=== PATIENT | male | born 1935 | race Caucasian/White ===

== ENCOUNTER 2016-11-28 17:30 | Inpatient (IN) | payer OTHER, MEDICAID ==
[~2016-11-28] VITALS: Ht 172.7 cm; Wt 64.0 kg
[2016-11-28 17:37] VITALS: BP_SYST 129
[2016-11-28] MEDS ORDERED: NACL 0.9% 1,000 ML IV ONE (18:15)
[2016-11-28] MEDS ORDERED: CARB-62 PO (18:44)
[2016-11-28] MEDS ORDERED: CLOP75TA2 PO (18:44)
[2016-11-28] MEDS ORDERED: GABA300S PO (18:44)
[2016-11-28] MEDS ORDERED: ASA81 PO (18:44)
[2016-11-28] MEDS ORDERED: ATOR10TA68 PO (18:44)
[2016-11-28] MEDS ORDERED: TAMS-11 PO (18:44)
[2016-11-28] MEDS ORDERED: DEXT1CAP3 PO (18:44)
[2016-11-28] MEDS ORDERED: DIGO125T79 PO (18:44)
[2016-11-28] MEDS ORDERED: SOLI5TAB6 PO (18:44)
[2016-11-28] MEDS ORDERED: STA120 PO (18:44)
[2016-11-28] MEDS ORDERED: FLOR.1 GT (18:44)
[2016-11-28] MEDS ORDERED: GLUXR500 PO (18:44)
[2016-11-28] MEDS ORDERED: DOCU100T10 PO (18:44)
[2016-11-28] MEDS ORDERED: AMAN100C16 PO (18:44)
[2016-11-28 18:46] LABS: BASOPHILS % (AUTO) 0.4 % (0.0-2.0); EOSINOPHILS # (AUTO) 0.2 K/uL (0.0-0.4); EOSINOPHILS % (AUTO) 3.6 % (0.0-4.0); LYMPHOCYTES # (AUTO) 1.5 K/uL (1.0-5.5); MEAN CORPUSCULAR HEMOGLOBIN 32 pg (27-31); MEAN CORPUSCULAR HGB CONC 34 % (32-36); MEAN CORPUSCULAR VOLUME 94 fL (79.0-98.0); MONOCYTES # (AUTO) 0.4 K/uL (0.0-1.0); MONOCYTES % (AUTO) 8.7 % (1.7-9.3); NEUTROPHILS # (AUTO) 2.5 K/uL (1.8-7.7); NEUTROPHILS % (AUTO) 54.3 % (40.0-70.0); PLATELET COUNT (AUTO) 105 K/uL (130-430); RED BLOOD CELL COUNT(AUTO) 3.41 MIL/uL (4.2-6.2); RED CELL DISTRIBUTION WIDTH 13.9 % (9.0-15.0); WHITE BLOOD COUNT (AUTO) 4.6 K/uL (4.8-10.8)
[2016-11-28 18:48] LABS: PROTHROMBIN TIME 10.4 SECS (9.5-12.5)
[2016-11-28 19:04] LABS: ALANINE AMINOTRANSFERASE 18 U/L (12-78); ANION GAP 9 (5-15); ASPARTATE AMINOTRANSFERASE 18 U/L (10-37); CALCIUM 9.1 mg/dL (8.4-11.0); CHLORIDE 103 mmol/L (98-107); GLUCOSE 135 mg/dL (70-99); POTASSIUM 5.1 mmol/L (3.5-5.1); SODIUM SERUM 139 mmol/L (136-145); TOTAL BILIRUBIN 0.4 mg/dL (0.0-1.0); UREA NITROGEN, BLOOD 33 mg/dL (8-21)
[2016-11-28 19:05] LABS: ACETAMINOPHEN < 1 ug/mL (1-30)
[2016-11-28 19:26] LABS: BILIRUBIN,URINE NEGATIVE (NEGATIVE); BLOOD, URINE NEGATIVE (NEGATIVE); CLARITY/URINE CLEAR (CLEAR); COLOR,URINE YELLOW (YELLOW); GLUCOSE,URINE NEGATIVE (NEGATIVE); KETONES,URINE NEGATIVE (NEGATIVE); LEUKOCYTE ESTERASE ,URINE NEGATIVE (NEGATIVE); NITRITE, URINE NEGATIVE (NEGATIVE); PH,URINE 5.5 (5.0-8.0); PROTEIN URINE NEGATIVE (NEGATIVE); UROBILINOGEN,URINE 0.2 (0.2-1.0)
[2016-11-28 19:40] LABS: THYROID STIMULATING HORMONE 1.88 uIu/mL (0.36-3.74)
[2016-11-28 19:45] LABS: BARBITURATE, URINE NEGATIVE (NEG <=200); BENZODIAZEPINE, URINE NEGATIVE (NEG <=150); CANNABINOID, URINE NEGATIVE (NEG <=50); COCAINE, URINE NEGATIVE (NEG <=150); METHAMPHETAMINES SCREEN,URINE NEGATIVE (NEG <=500); OPIATE, URINE NEGATIVE (NEG <=100); PHENCYCLIDINE SCREEN,URINE NEGATIVE (NEG <=25); UR TRICYCLIC ANTIDEPRESSANTS NEGATIVE (NEG <=300); URINE AMPHETAMINE NEGATIVE (NEG <=500); URINE METHADONE NEGATIVE (NEG <=200); URINE OXYCODONE SCREEN NEGATIVE (NEG <=100); URINE PROPOXYPHENE SCREEN NEGATIVE (NEG <=300)
[2016-11-28 19:50] VITALS: BP_SYST 166
[2016-11-28] MEDS ORDERED: D5/0.45 NS 1,000 ML IV SCH (20:30)
[2016-11-28] MEDS ORDERED: DEXTROSE 50% JECT 50 ML DISP.SYRIN IVP PRN ×2 (21:00)
[2016-11-28] MEDS ORDERED: FLU VACC QS 2017-18(36MOS+)/PF 0.5 ML/SYR SYRINGE I.M. PRN (21:00)
[2016-11-28] MEDS ORDERED: GLUCOSE 15 GM GEL (in 37.5 GM TUBE) PO PRN ×2 (21:00)
[2016-11-28 21:10] VITALS: BP_SYST 186
[2016-11-28 21:12] VITALS: BP_SYST 168
[2016-11-28 21:14] VITALS: BP_SYST 112
[2016-11-28] MEDS: NACL 0.9% 1,000 ML IV SCH (21:25)
[2016-11-28] MEDS: AMANTADINE HCL 100 MG CAP PO SCH (22:15)
[2016-11-28] MEDS: TAMSULOSIN HCL 0.4 MG CAP PO SCH (22:16)
[2016-11-28] MEDS: OXYBUTYNIN CHLORIDE 5 MG TABLET PO SCH (22:16)
[2016-11-28] MEDS: CARBIDOPA/LEVODOPA 25/250 MG TABLET PO SCH (22:16)
[2016-11-28] MEDS: NATEGLINIDE 120 MG TABLET PO SCH (22:16)
[2016-11-28 22:18] LABS: ALCOHOL, BLOOD < 3 mg/dL (<10)
[2016-11-28] MEDS: INSULIN ASPART 100 UNITS/ML, 10 ML VIAL (NovoLOG) SUBCUT PRN (22:19)
[2016-11-29] VITALS: BP_SYST 113
[2016-11-29 04:00] VITALS: BP_SYST 125
[2016-11-29 08:08] VITALS: BP_SYST 180
[2016-11-29 08:28] LABS: DIGOXIN 1.3 ng/mL (0.80-2.00)
[2016-11-29 08:39] LABS: ANION GAP 10 (5-15); CHLORIDE 108 mmol/L (98-107); GLUCOSE 92 mg/dL (70-99); POTASSIUM 4.6 mmol/L (3.5-5.1); SODIUM SERUM 144 mmol/L (136-145); UREA NITROGEN, BLOOD 27 mg/dL (8-21)
[2016-11-29] MEDS: OXYBUTYNIN CHLORIDE 5 MG TABLET PO SCH ×2 (09:45→21:42)
[2016-11-29] MEDS: AMANTADINE HCL 100 MG CAP PO SCH ×2 (09:47→21:42)
[2016-11-29] MEDS: ATORVASTATIN 10 MG TABLET PO SCH (09:47)
[2016-11-29] MEDS: NATEGLINIDE 120 MG TABLET PO SCH ×3 (09:48→21:47)
[2016-11-29] MEDS: ASPIRIN 81 MG TAB.CHEW PO SCH (09:48)
[2016-11-29] MEDS: FLUDROCORTISONE ACETATE 0.1 MG TABLET( FLORINEF) GT SCH (09:48)
[2016-11-29] MEDS: CLOPIDOGREL BISULFATE 75 MG TABLET PO SCH (09:48)
[2016-11-29] MEDS: DIGOXIN 0.125 MG TABLET PO SCH (09:59)
[2016-11-29] MEDS: CARBIDOPA/LEVODOPA 25/250 MG TABLET PO SCH ×4 (10:11→21:41)
[2016-11-29] MEDS: NACL 0.9% 1,000 ML IV SCH (10:11)
[2016-11-29 10:49] LABS: TRIGLYCERIDES 64 mg/dL (30-150)
[2016-11-29 10:50] LABS: CHOLESTEROL 102 mg/dL (<200); HDL CHOLESTEROL 47 mg/dL (>45)
[2016-11-29 10:51] LABS: LDL CHOLESTEROL 45 mg/dL (<100)
[2016-11-29 12:30] VITALS: BP_SYST 111
[2016-11-29] MEDS: INSULIN ASPART 100 UNITS/ML, 10 ML VIAL (NovoLOG) SUBCUT PRN ×2 (12:47→22:06)
[2016-11-29 16:36] VITALS: BP_SYST 138
[2016-11-29 20:00] VITALS: BP_SYST 185
[2016-11-29] MEDS: TAMSULOSIN HCL 0.4 MG CAP PO SCH (21:42)
[2016-11-29] MEDS ORDERED: cloNIDine HCL 0.1 MG TABLET PO PRN (23:45)
[2016-11-30] MEDS: LORazepam 2 MG/ML VIAL IVP PRN ×2 (03:02→20:18)
[2016-11-30 03:39] VITALS: BP_SYST 159
[2016-11-30] MEDS: FLUDROCORTISONE ACETATE 0.1 MG TABLET( FLORINEF) GT SCH (08:45)
[2016-11-30] MEDS: risperiDONE 0.25 MG TABLET (RisperDAL) PO SCH ×2 (08:45→21:26)
[2016-11-30] MEDS: ATORVASTATIN 10 MG TABLET PO SCH (08:45)
[2016-11-30] MEDS: CLOPIDOGREL BISULFATE 75 MG TABLET PO SCH (08:45)
[2016-11-30] MEDS: CARBIDOPA/LEVODOPA 25/250 MG TABLET PO SCH ×4 (08:46→21:26)
[2016-11-30] MEDS: NATEGLINIDE 120 MG TABLET PO SCH ×3 (08:46→21:26)
[2016-11-30] MEDS: DIGOXIN 0.125 MG TABLET PO SCH (08:46)
[2016-11-30] MEDS: AMANTADINE HCL 100 MG CAP PO SCH ×2 (08:46→21:26)
[2016-11-30] MEDS: OXYBUTYNIN CHLORIDE 5 MG TABLET PO SCH ×2 (08:46→21:26)
[2016-11-30] MEDS: ASPIRIN 81 MG TAB.CHEW PO SCH (08:46)
[2016-11-30 12:53] VITALS: BP_SYST 159
[2016-11-30] MEDS: INSULIN ASPART 100 UNITS/ML, 10 ML VIAL (NovoLOG) SUBCUT PRN ×2 (13:17→21:34)
[2016-11-30 16:45] VITALS: BP_SYST 158
[2016-11-30] MEDS: cefTRIAXone 1 GM in D5W 50 ML IV SCH (18:48)
[2016-11-30 19:42] LABS: BILIRUBIN,URINE NEGATIVE (NEGATIVE); BLOOD, URINE NEGATIVE (NEGATIVE); CLARITY/URINE CLEAR (CLEAR); COLOR,URINE YELLOW (YELLOW); GLUCOSE,URINE NEGATIVE (NEGATIVE); KETONES,URINE NEGATIVE (NEGATIVE); LEUKOCYTE ESTERASE ,URINE NEGATIVE (NEGATIVE); NITRITE, URINE NEGATIVE (NEGATIVE); PH,URINE 5.5 (5.0-8.0); PROTEIN URINE NEGATIVE (NEGATIVE); UROBILINOGEN,URINE 0.2 (0.2-1.0)
[2016-11-30 20:23] VITALS: BP_SYST 154
[2016-11-30 20:24] VITALS: BP_SYST 154
[2016-11-30] MEDS: TAMSULOSIN HCL 0.4 MG CAP PO SCH (21:26)
[2016-11-30 22:59] VITALS: BP_SYST 147
[2016-12-01 03:47] VITALS: BP_SYST 172
[2016-12-01] MEDS: LORazepam 2 MG/ML VIAL IVP PRN (04:01)
[2016-12-01 08:00] VITALS: BP_SYST 109
[2016-12-01] MEDS: FLUDROCORTISONE ACETATE 0.1 MG TABLET( FLORINEF) GT SCH (09:00)
[2016-12-01] MEDS: ASPIRIN 81 MG TAB.CHEW PO SCH (09:00)
[2016-12-01] MEDS: ATORVASTATIN 10 MG TABLET PO SCH (09:01)
[2016-12-01] MEDS: CARBIDOPA/LEVODOPA 25/250 MG TABLET PO SCH ×4 (09:01→21:14)
[2016-12-01] MEDS: CLOPIDOGREL BISULFATE 75 MG TABLET PO SCH (09:01)
[2016-12-01] MEDS: OXYBUTYNIN CHLORIDE 5 MG TABLET PO SCH ×2 (09:02→21:14)
[2016-12-01] MEDS: DIGOXIN 0.125 MG TABLET PO SCH (09:02)
[2016-12-01] MEDS: risperiDONE 0.25 MG TABLET (RisperDAL) PO SCH (09:02)
[2016-12-01] MEDS: AMANTADINE HCL 100 MG CAP PO SCH ×2 (09:02→21:14)
[2016-12-01] MEDS: NATEGLINIDE 120 MG TABLET PO SCH ×3 (09:02→22:11)
[2016-12-01 11:41] LABS: BASOPHILS % (AUTO) 0.7 % (0.0-2.0); EOSINOPHILS # (AUTO) 0.1 K/uL (0.0-0.4); EOSINOPHILS % (AUTO) 2.2 % (0.0-4.0); HEMATOCRIT 31.6 % (36-54); HEMOGLOBIN 10.7 g/dL (14.0-18.0); LYMPHOCYTES # (AUTO) 1.3 K/uL (1.0-5.5); LYMPHOCYTES % (AUTO) 27.1 % (20.5-51.5); MEAN CORPUSCULAR HEMOGLOBIN 33 pg (27-31); MEAN CORPUSCULAR HGB CONC 34 % (32-36); MEAN CORPUSCULAR VOLUME 96 fL (79.0-98.0); MONOCYTES # (AUTO) 0.4 K/uL (0.0-1.0); MONOCYTES % (AUTO) 8.4 % (1.7-9.3); NEUTROPHILS # (AUTO) 2.9 K/uL (1.8-7.7); NEUTROPHILS % (AUTO) 61.6 % (40.0-70.0); PLATELET COUNT (AUTO) 95 K/uL (130-430); RED BLOOD CELL COUNT(AUTO) 3.29 MIL/uL (4.2-6.2); RED CELL DISTRIBUTION WIDTH 14.1 % (9.0-15.0); WHITE BLOOD COUNT (AUTO) 4.7 K/uL (4.8-10.8)
[2016-12-01] MEDS: INSULIN ASPART 100 UNITS/ML, 10 ML VIAL (NovoLOG) SUBCUT PRN ×2 (11:50→17:30)
[2016-12-01 12:13] LABS: ANION GAP 7 (5-15); CALCIUM 8.4 mg/dL (8.4-11.0); CHLORIDE 105 mmol/L (98-107); CREATININE 1.52 mg/dL (0.55-1.30); GLUCOSE 177 mg/dL (70-99); POTASSIUM 4.3 mmol/L (3.5-5.1); SODIUM SERUM 139 mmol/L (136-145); UREA NITROGEN, BLOOD 27 mg/dL (8-21)
[2016-12-01 13:20] VITALS: BP_SYST 145
[2016-12-01 16:18] VITALS: BP_SYST 142
[2016-12-01] MEDS: cefTRIAXone 1 GM in D5W 50 ML IV SCH (17:10)
[2016-12-01 20:00] VITALS: BP_SYST 123
[2016-12-01] MEDS ORDERED: risperiDONE 0.25 MG TABLET (RisperDAL) PO SCH (21:00)
[2016-12-01] MEDS: TAMSULOSIN HCL 0.4 MG CAP PO SCH (21:14)
[2016-12-02 00:39] VITALS: BP_SYST 141
[2016-12-02] MEDS: LORazepam 2 MG/ML VIAL IVP PRN ×2 (00:50→10:00)
[2016-12-02 05:00] VITALS: BP_SYST 169
[2016-12-02 08:00] VITALS: BP_SYST 169
[2016-12-02] MEDS: NATEGLINIDE 120 MG TABLET PO SCH ×2 (09:55→14:32)
[2016-12-02] MEDS: ASPIRIN 81 MG TAB.CHEW PO SCH (09:55)
[2016-12-02] MEDS: CLOPIDOGREL BISULFATE 75 MG TABLET PO SCH (09:55)
[2016-12-02] MEDS: CARBIDOPA/LEVODOPA 25/250 MG TABLET PO SCH ×3 (09:55→17:13)
[2016-12-02] MEDS: FLUDROCORTISONE ACETATE 0.1 MG TABLET( FLORINEF) GT SCH (09:55)
[2016-12-02] MEDS: DIGOXIN 0.125 MG TABLET PO SCH (09:56)
[2016-12-02] MEDS: AMANTADINE HCL 100 MG CAP PO SCH (09:56)
[2016-12-02] MEDS: OXYBUTYNIN CHLORIDE 5 MG TABLET PO SCH (09:56)
[2016-12-02] MEDS: ATORVASTATIN 10 MG TABLET PO SCH (09:56)
[2016-12-02 12:00] VITALS: BP_SYST 123
[2016-12-02 15:36] VITALS: BP_SYST 114
[2016-12-02 15:37] VITALS: BP_SYST 123
[2016-12-02] MEDS: cefTRIAXone 1 GM in D5W 50 ML IV SCH (17:13)
[2016-12-02] MEDS ORDERED: risperiDONE 0.25 MG TABLET (RisperDAL) PO SCH (21:00)
== END 2016-12-02 19:20 | DRG 312 ==
LOC: SED 17:30 → STU 18:33
PROVIDERS: ADMIT Family Medicine; ATTEND Family Medicine
DX: I95.1 Orthostatic hypotension (principal); G20 Parkinson's disease; N39.0 Urinary tract infection, site not specified; E11.9 Type 2 diabetes mellitus without complications; R55 Syncope and collapse; W19.XXXA Unspecified fall, initial encounter; I10 Essential (primary) hypertension; N32.81 Overactive bladder; I44.0 Atrioventricular block, first degree; N28.9 Disorder of kidney and ureter, unspecified; I34.0 Nonrheumatic mitral (valve) insufficiency; F29 Unspecified psychosis not due to a substance or known physiological condition; N40.1 Benign prostatic hyperplasia with lower urinary tract symptoms; N39.498 Other specified urinary incontinence; E78.5 Hyperlipidemia, unspecified; Z95.1 Presence of aortocoronary bypass graft; R30.0 Dysuria; I25.10 Atherosclerotic heart disease of native coronary artery without angina pectoris; Z91.041 Radiographic dye allergy status; Z79.899 Other long term (current) drug therapy; Z79.02 Long term (current) use of antithrombotics/antiplatelets; Z79.82 Long term (current) use of aspirin; Z95.5 Presence of coronary angioplasty implant and graft; Y93.89 Activity, other specified; Y92.89 Other specified places as the place of occurrence of the external cause; Y99.8 Other external cause status
CPT/HCPCS: 36415; 70450-TC; 71010; 76770; 80048; 80053; 80061; 80162-TC; 80307; 81003; 82962; 83036; 84443-TC; 84484; 85025; 85610-TC; 85730-TC; 87040-TC; 87081; 87086; 93005; 93306; 93880; 96360; 97110-GP; 97116-GP; 97530-GP; 99285; G0480; G0481; G0482; J0696; J1815; J2060; J7030; J7060; Q2037